=== PATIENT | female | born 1975 | race African-American/Black ===

== ENCOUNTER 2020-03-26 12:33 | Emergency (ER) | payer BC, OTHER ==
[~2020-03-26] VITALS: Ht 167.6 cm; Wt 108.9 kg
--- OUTSIDE RECORDS SUMMARY | 2020-03-26 12:36 | XMS REPORT | Summary of Care ---
Author Author ROSHAN Ellis Organization Unknown Address Unknown Phone Unavailable Care Team Providers Care Voice Data Communications Engineer Name Role Phone RUSTAM AREVALO M.D. 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 * Start : 12-Nov-2018 Active diazePAM 5 MG Oral Tablet TAKE 1 TABLET TWICE DAILY NEEDED. * Quantity: 15 Refills: 0 GEOVANI AREVALO M.D.GART * Start : 08-Dec-2018 Active Allergies and Adverse Reactions Name Dates Details Allergy history not documented Status: Procedures Procedure Dates Details Procedures not documented Immunization Name Dates Details Immunizations not documented Social History Name Dates Details Unknown if ever smoked Vital Signs Date Test Result Details No Known Vitals to report Results Date Description Value Details Results not documented Plan of Care Name Dates Details Planned Observations Planned Goals not documented Instructions Name Dates Details Instructions not documented Encounters Appointment; RUSTAM AREVALO M.D. Encounter Diagnosis: Problem not documented On: 12-Nov-2018 11:00 Appointment; RUSTAM AREVALO M.D. Encounter Diagnosis: Problem not documented On: 07-Dec-2018 11:00 Appointment; RUSTAM AREVALO M.D. Encounter Diagnosis: Problem not documented On: 22-Dec-2018 9:00 Appointment; RUSTAM AREVALO M.D. Encounter Diagnosis: Problem not documented On: 19-Jan-2019 10:00 Appointment; RUSTAM AREVALO M.D. Encounter Diagnosis: Problem not documented On: 25-Feb-2019 16:00
--- OUTSIDE RECORDS SUMMARY | 2020-03-26 12:36 | XMS REPORT ---
Author Author [facility] Organization [facility] Address Unknown Phone Unavailable Care Team Providers Care Air Brush Operator Name Role Phone MATHEUS AREVALO M.D. 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 Medications Ordered Medication Name Filled Medication Name Start Date Stop Da te Current Medication? Ordering Clinician Indication Dosage Frequency Signature (SIG) Comments Components diazePAM 5 MG Oral Tablet diazePAM 5 MG Oral Tablet 2018-12-08 00:00: 00 Yes MATHEUS AREVALO M.D. Q0.5D TAKE 1 TABLET TWICE DAILY NEEDED. Vitamin D3 01466 UNIT Oral Tablet Vitamin D3 75606 UNIT Oral Tablet 2018-11-12 00:00:00 Yes MATHEUS AREVALO M.D. 1 TAKE 1 TAB LET WEEKLY Procedures and Interventions Procedure Date / Time Performed Performing Clinici an [U] XRAY ANKLE MIN 3 VWS RIGHT [id number] 2019-03-21 00:00:00 Post Op Promis 29 Survey 2019-01-28 00:00:00 Encounters Start Date/Time End Date/Time Encounter Type Admission Type [facility] Care Department Encounter ID 2019-03-23 10:30:00 2019-03-23 10:30:00 Appointment; BRITNEY AREVALO M.D. GAUVAIN, TAGGART, M.D. [facility] [id number] 2019-02-25 16:00:00 2019-02-25 16:00:00 Appointment; BRITNEY AREVALO M.D. GAUVAIN, TAGGART, M.D. [facility] [id number] 2019-01-19 10:00:00 2019-01-19 10:00:00 Appointment; BRITNEY AREVALO M.D. GAUVAIN, TAGGART, M.D. [facility] [place] [id number] 2018-12-22 09:00:00 2018-12-22 09:00:00 Appointment; BRITNEY AREVALO M.D. GAUVAIN, TAGGART, M.D. [facility] [place] [id number] 2018-12-07 11:00:00 2018-12-07 11:00:00 Appointment; BRITNEY AREVALO M.D. GAUVAIN, TAGGART, M.D. [facility] [id number] 2018-11-12 11:00:00 2018-11-12 11:00:00 Appointment; BRITNEY AREVALO M.D. GAUVAIN, TAGGART, M.D. [facility] [id number] Results Test Description Test Time Test Comments Text Results Atomic Results Result Comments [U] XRAY ANKLE MIN 3 VWS RIGHT [id number] 2019-02-25 15:58:00 Images acquired, not reported on this accession number. [U] XRAY ANKLE MIN 3 VWS RIGHT [id number] 2019-01-19 09:46:00 Images acquired, not reported on this accession number. [U] XRAY ANKLE MIN 3 VWS RIGHT [id number] 2018-12-22 08:52:00 Images acquired, not reported on this accession number. [U] XRAY ANKLE MIN 3 VWS RIGHT [id number] 2018-11-12 10:59:00 Images acquired, not reported on this accession number.
--- NOTE | 2020-03-26 13:13 | NUR ---
COVID 19 TEST PROFORMED, PROCEDURE EXPLAINED TO PATIENT, WITH VERBAL UNDERSTANDING
--- NOTE | 2020-03-26 13:50 | Diagnostic Imaging Report ---
EXAMINATION: CXR 2 VIEW - HOPD INDICATION: Shortness of breath COMPARISON: None FINDINGS: LINES/TUBES:None LUNGS:The lungs are well-inflated. No focal consolidation or pulmonary edema. PLEURA:No pleural effusion or pneumothorax. MEDIASTINUM:The cardiomediastinal silhouette appears normal in size and shape. BONES/SOFT TISSUES:No acute osseous injury. ABDOMEN:No free air under the diaphragm. IMPRESSION: No focal pneumonia or pulmonary edema. Signed by: Chris Cortés MD on 03/26/2020 1:47 PM
== END 2020-03-26 13:41 | disposition home or self-care (01) ==
LOC: FSED 12:33
DX: R05 Cough (principal); J20.9 Acute bronchitis, unspecified; J04.0 Acute laryngitis; J06.9 Acute upper respiratory infection, unspecified
CPT/HCPCS: 71046; 83518; 87400; 87635; 99283